=== PATIENT | male | born 1995 | race Caucasian/White ===

== ENCOUNTER 2018-08-22 09:40 | Outpatient (CLI) | payer MEDICARE, MEDICAID ==
--- NOTE | 2018-08-22 12:14 | RAD ---
Esophagram HISTORY: Gastroesophageal reflux disease. Fluoroscopy: Total fluoroscopy time is 1 minute with total dose of 12.236 Gy square centimeter FINDINGS: A double contrast esophagram was performed. Normal esophageal peristalsis was demonstrated during the exam. There is no evidence of a mucosal irregularity or focal area of narrowing in the esophagus. There is no evidence of a hiatal hernia, and no gastroesophageal reflux was demonstrated during the e xam. The patient was unable to swallow a 12.5 mm barium tablet for the exam. IMPRESSION: Normal esophagram. There is no mucosal irregularity present, and no hiatal hernia is identified. No g astroesophageal reflux was noted during this exam.
== END 2018-08-22 09:41 | disposition home or self-care (01) ==
LOC: RAD 09:40
PROVIDERS: ATTEND Specialist
DX: K21.9 Gastro-esophageal reflux disease without esophagitis (principal)
CPT/HCPCS: 74220